=== PATIENT | male | born 1955 | race Hispanic/Latino ===

== ENCOUNTER 2021-01-19 03:04 | Inpatient (IN) | payer MEDICARE, SELFPAY ==
--- NOTE | ~2021-01-19 | XR_ITS ---
EXAMINATION: XR chest 1V portable DATE: 01/19/2021 03:30 INDICATION: Chest pain. TECHNIQUE: A single frontal view of the chest was obtained. COMPARISON: None. FINDINGS: There is mild atelectasis in left lower lung zone. No pleural effusion or pneumothorax. The heart size is normal. IMPRESSION: 1. Mild atelectasis in left lower lung zone. Reviewed, dictated and finalized at location A. MAKER
[2021-01-19 03:03] VITALS: BP 159/90; PULSE 73; RESP 18; O2SAT 100
--- NOTE | 2021-01-19 03:10 | ECG_ITS ---
Measurements Intervals [place] Rate: 67 P: 77 SD: 160 QRS: -44 QRSD: 153 T: 83 QT: 406 QTc: 431 Interpretive Statements SINUS RHYTHM LEFT AXIS DEVIATION LEFT BUNDLE BRANCH BLOCK ST ELEVATION IN ANT/HIGH LAT LEADS- CONSIDER ACUTE INJURY BASELINE ARTIFACT- II, III, AVF ABNORMAL ECG Electronically Signed On 01-19-2021 7:15:47 MACHINE STONECUTTER by Adalberto Muhammad D.O.
--- NOTE | 2021-01-19 03:15 | ED.CHESTPAIN ---
HPI - Chest Pain General Chief Complaint: Chest Pain Stated Complaint: CP Source: RN notes reviewed History of Present Illness HPI narrative: Patient presents emergency department from his car via EMS for chest pain. Patient is from [place] and was driving through the area when approximate 1 hour ago he developed midsternal chest pain described as a pressure. States the pain did not radiate at that time pulled over the side of the car and called EMS. Upon initial EMS evaluation it was noted the patient had ST elevation on his EKG and a code STEMI was called. Patient states the pain is currently a 4 out of 10 and midsternal chest he denies any shortness of breath or any other symptoms denies any previous cardiac history. Patient was given 1 sublingual nitro by EMS with no relief as well as 325 aspirin Related Data Home Medications Medication Instructions Recorded Confirmed metformin 850 mg PO BID 01/19/21 01/19/21 Allergies Allergy/AdvReac Type Severity Reaction Status Date / Time No Known Allergies Allergy Verified 01/19/21 03:40 Review of Systems Review of Systems: Narrative: Gen.: Denies fevers or chills ENT: Denies congestion Respiratory: Denies shortness of breath or cough CV: See HPI GI: Denies abdominal pain nausea, emesis or diarrhea Musculoskeletal: Denies back pain or muscle pain Neuro: Denies numbness, tingling, weakness or focal weakness Skin: Denies rash Except as documented, all other systems reviewed and negative [facility] Past Medical History Medical History (Updated 01/19/21 @ 03:17 by Jose L Lazar DO) Diabetes mellitus Social History Social History (Updated 01/19/21 @ 03:16 by Jose L Lazar DO) Smoking status: Never smoker Exam Narrative: Exam Narrative: APPEARANCE: No acute distress, nontoxic, resting in bed EYES: EOMI HEENT: Normocephalic, atraumatic, OMM RESPIRATORY: No respiratory distress Clear to auscultation bilaterally with no rhonchi wheezing or rales. CARDIOVASCULAR: Regular rate and rhythm without murmurs rubs or gallops. ABDOMINAL: Soft, nontender, nondistended, no rebound or guarding MUSCULOSKELETAl: Moves all extremities. No clubbing, cyanosis or edema. NEURO: Awake and alert. Following commands, speech normal, no focal deficits SKIN:: Warm, dry. No rashes lesions or abrasions PSYCHIATRIC: Normal affect/mood, Course Course Emergency Course: Discussed with Dr. Barreto for cardiology presentation work-up will come to the ED at this time to take patient for emergent cath request patient received heparin bolus Discussed with patient and family results of workup and diagnosis. Discussed need for Cardiac Director Targeted Marketing. All questions were answered Vital Signs Vital signs: Vital Signs Pulse Rate 73 01/19/21 03:03 Respiratory Rate 18 01/19/21 03:03 Blood Pressure 159/90 H 01/19/21 03:03 Pulse Oximetry 100 01/19/21 03:03 Temperature 96.7 F L 01/19/21 03:36 Pulse Rate 67 01/19/21 03:36 Respiratory Rate 16 01/19/21 03:36 Blood Pressure 138/77 01/19/21 03:36 Pulse Oximetry 96 01/19/21 03:36 MDM - Chest Pain Lab Data Result diagrams: 01/19/21 03:22 01/19/21 03:22 Labs: Lab Results 01/19/21 01/19/21 01/19/21 Range/Units 03:22 03:22 03:22 WBC 14.1 H (4.5-10.0) K/mm3 RBC 4.84 (4.6-6.20) M/mm3 Hgb 14.7 (14.0-18.0) g/dL Hct 43.0 (42.0-52.0) % MCV 88.8 (80-100) fl MCH 30.4 (26-34) pg MCHC 34.2 (32-36) g/dl RDW 12.4 (11.5-14.5) % Plt Count 277 (150-375) k/mm3 MPV 9.3 (7.4-10.4) fl Immature Gran % (Auto) 0.4 (0-0.5) % Neut % (Auto) 46.0 (45.5-73.1) % Lymph % (Auto) 33.5 (18.3-44.2) % Collier % (Auto) 5.3 (2.6-8.5) % Eos % (Auto) 14.2 H (0-4.4) % Baso % (Auto) 0.6 (0.2-1.2) % Lymph # (Auto) 4.73 H (0.9-3.2) K/mm3 Collier # (Auto) 0.8 H (0.1-0.6) K/mm3 Eos # (Auto) 2.0 H (0-0.3) K/mm3 Baso # (Auto) 0.1 (0.0-0.1) K
--- NOTE | 2021-01-19 03:25 | PC.NURSE ---
labor and delivery nurse pending , ana maría cp@ a -3 .,skin warm and dry.
[2021-01-19 03:27] LABS: Basophils Absolute Auto 0.1 K/mm3 (0.0-0.1); Basophils Percent Auto 0.6 % (0.2-1.2); Eosinophils Percent Auto 14.2 % (0-4.4); Hemoglobin 14.7 g/dL (14.0-18.0); Immature Granulocyte Absolute 0.05 K/mm3 (0.00-0.031); Immature Granulocyte Percent A 0.4 % (0-0.5); Lymphocytes Absolute Auto 4.73 K/mm3 (0.9-3.2); Lymphocytes Percent Auto 33.5 % (18.3-44.2); Mean Corpuscular HGB Conc 34.2 g/dl (32-36); Mean Corpuscular Hemoglobin 30.4 pg (26-34); Mean Corpuscular Volume 88.8 fl (80-100); Mean Platelet Volume 9.3 fl (7.4-10.4); Monocytes Absolute Auto 0.8 K/mm3 (0.1-0.6); Monocytes Percent Auto 5.3 % (2.6-8.5); Neutrophils Absolute Auto 6.5 K/mm3 (1.3-6.7); Platelet Count Result 277 k/mm3 (150-375); Red Blood Count 4.84 M/mm3 (4.6-6.20); Red Cell Distribution Width 12.4 % (11.5-14.5); White Blood Count 14.1 K/mm3 (4.5-10.0)
[2021-01-19 03:36] VITALS: BP 138/77; PULSE 67; RESP 16; TEMP 35.9; O2SAT 96
[2021-01-19] MEDS: HEPARIN SODIUM 5,000 UNITS/ML VIAL 5000 UNITS (03:43)
[2021-01-19] MEDS: MORPHINE SULFATE (*CRX) 2 MG/ML INJ (03:43)
--- NOTE | 2021-01-19 03:46 | PC.NURSE ---
to microbiology laboratory manager @ [phone]
[2021-01-19 03:51] LABS: Anion Gap 12 mmol/L (8-16); Blood Urea Nitrogen 14 mg/dL (9-20); Calcium 9.3 mg/dL (8.4-10.2); Carbon Dioxide 27 mmol/L (22-30); Chloride 101 mmol/L (98-107); Estimated CRCL calculation 58 ml/min; Estimated Glomerular Filt Rate > 60; Glucose 257 mg/dL (75-110); Potassium 3.4 mmol/L (3.4-5.0); Sodium 140 mmol/L (137-145)
[2021-01-19 04:03] LABS: Troponin I 0.012 ng/mL (0.000-0.034)
--- NOTE | 2021-01-19 05:17 | P.PCNCC_ITS ---
Cardiac Cath Procedure Note Date of procedure:: 01/19/21 Performing physician:: Lorna Barreto MD date of service 01/19/2021 Procedure Procedure performed:: 1-Moderate sedation that started at 4:00 a.m.and ended at 5:00 a.m.using 2mg of Versed and 125mcg fentanyl. The registered nurse was nga mendoza. 2-Selective left and right coronary angiogram. 3-Left heart catheterization with measurement of LVEDP and measurement of gradient across aortic valve. 4- balloon angioplasty of mid LAD. 4-Right common femoral arterial angiogram. 5-Deployment of intra-aortic balloon pump. Sedation/Medication given:: Moderate sedation. Access site:: Right common femoral artery. Estimated blood loss:: 10cc Procedure note:: After informed consent patient was brought in to lab head with the was draped and prepped in usual manner. Moderate sedation was given and the right groin was infiltrated using 1% lidocaine. Five [place] sheath was obtained using micropuncture needle and the modified Seldinger technique.Selective right coronary angiogram was done using JR4 catheter with the tip of the catheter placed to the right coronary artery. then after that we went with the guide catheter 6 [place] CLS 3. coronary luge wire was 0.014 was advanced to distal LAD. Balloon angioplasty of the LAD was done using 3 x 20 balloon with several inflations each under nominal pressure for 20 seconds. After that we took 3 x 15 noncompliant balloon and inflated it in the calcific region with several inflations but that balloon to slipping away from lesion. We took another 3 by 20 noncompliant balloon and inflated under 24 atmospheres for 25 seconds. And n oticed that the lesion in the mid LAD did not healed well. For brief period of time we lost the diagonal branch but it came back. It was noticed that the plaque has shifted also to ostial diagonal branch. CARLOS flow 3. given that the fact that the lesion did not yield well and given the fact that he has other lesions in the left circumflex artery and RCA we decided to quit here and send him for consideration for bypass surgery at [facility]. After that 5 [place] pigtail catheter was advanced across the aortic valve into the left ventricle with measurement of LVEDP and measurement of gradient across aortic valve. LV angiogram was done.Right common femoral arterial angiogram was done. Insertion of intra-aortic balloon pump was done as well. Findings:: 1- left coronary artery is a large artery that divides into large LAD, large circumflex artery. Left main Distally 20%. 2- left anterior descending artery is a large artery that runs and wraps around the apex. CARLOS flow 3. mid LAD 90% calcific. from the mid LAD there is a medium-sized diagonal branch with a healthy ostium however after intervention plaque has shifted to the ostium of the diagonal. 3- leftcircumflex artery is a large artery. at the junction of the mid to distal segment there is about 80% stenosis. 4- right coronary artery Large artery and dominant and proximally 70%. 5- LVEDP was 35 mmhg and no gradient across aortic valve. 6- opening arterial pressure 140/80 was and closing pressure was 130/80. 7- right femoral artery angiogram shows no significant disease in the right common femoral artery. Conclusion:: three vessel disease. lesion in lad did not yield well. shift of the plaque to the diagonal branch Assessment and Plan Additional Plan will transfer patient to [facility] for consideration for cabg
--- NOTE | 2021-01-19 05:17 | WPDMODSED ---
Moderate Sedation Note-Pt Data Patient Data Allergies Allergy/AdvReac Type Severity Reaction Status Date / Time No Known Allergies Allergy Verified 01/19/21 03:40 Home Medications Medication Instructions Recorded Confirmed Type metformin 850 mg PO BID 01/19/21 01/19/21 History Sedation/Anesthesia: No previous sedation/anesthesia problems (including family history). [facility] Past Medical History Medical History Diabetes mellitus Social History Social History Smoking status: Never smoker Mod Sed Physical Exam Physical Exam Pre Procedural Exam: Normal: Appearance, Eyes, Ears, Nose, Neck, Throat, Airway, Lungs, Heart Size, Heart Rate, Heart Rhythm, Neuro Exam, Abdomen, Liver, Kidneys, Spleen, Breasts, Genitalia, Extremities and Skin Hours since solid foods: 8 Hours since liquid intake: 8 Internal Medicine - PN: Obj Da Vital Signs Vital Signs: Vital Signs - 24 hr 01/19/21 03:03 01/19/21 03:36 Temperature 35.9 C L Pulse Rate 73 67 Respiratory Rate 18 16 Blood Pressure 159/90 H 138/77 Pulse Oximetry 100 96 Labs CBC & Chem 7: 01/19/21 03:22 01/19/21 03:22 Labs: Laboratory Results - last 24 hr 01/19/21 01/19/21 03:22 03:22 WBC 14.1 H RBC 4.84 Hgb 14.7 Hct 43.0 MCV 88.8 MCH 30.4 MCHC 34.2 RDW 12.4 Plt Count 277 MPV 9.3 Immature Gran % (Auto) 0.4 Neut % (Auto) 46.0 Lymph % (Auto) 33.5 Collier % (Auto) 5.3 Eos % (Auto) 14.2 H Baso % (Auto) 0.6 Lymph # (Auto) 4.73 H Collier # (Auto) 0.8 H Eos # (Auto) 2.0 H Baso # (Auto) 0.1 Abs Immat Gran (auto) 0.05 H Absolute Neuts (auto) 6.5 Absolute Nucleated RBC 0.0 Nucleated RBC % 0.0 Sodium 140 Potassium 3.4 Chloride 101 Carbon Dioxide 27 Anion Gap 12 BUN 14 Creatinine 1.00 Estim Creat Clear Calc 58 Estimated GFR > 60 Glucose 257 H Calcium 9.3 Troponin I 0.012 ASA Classification/Sedation ASA Classification/Sedation ASA Class: I Emergent: No Risks: Risks, benefits and alternatives explained and patient/family accepted plan for sedation. Patient re-evaluated immediately prior to sedation.
--- NOTE | 2021-01-19 05:18 | PM.IMHP ---
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 He pulled over and called EMS we did EKG that shows left bundle branch block with ST elevation in leads 1 and aVL. He was transported here to [facility]. he was still having pain 08/30. laborer vegetable farm team was called. Was taken to the chemistry lab instructor and flow was noticed that the patient has proximal RCA 70%, mid left circumflex artery 80% and there was 90% disease in the MidLAD with calcification. wounds with balloon angioplasty initially for the LAD and with no significant yield. we lost the flow in the diagonal branch but the flow came back to the diagonal branch. because of the inadequate result of the intervention we decided to transfer the patient to [facility] for CABG. I called CT surgery at [facility] and discussed the case with him and he agreed to accept the patient for consideration for CABG. also I called the ICU doctor at [facility] dr stacy And inform them about the case. I also spoke with the patient's son and I explained to him the situation. They live in [place]. Ejection fraction about 20% with global hypokinesis. LVEDP was 35. balloon pump was inserted the patient was hemodynamically stable. Patient states he never smoked cigarettes and does not have family history of CAD. Review of Systems Review of Systems: All systems reviewed & are unremarkable except as noted in HPI and below Constitutional: Constitutional: Denies chills, Denies fatigue, Denies fever(s), Denies headache(s) and Denies snoring Eyes: Eyes: Denies eye discharge and Denies loss of vision ENT: Denies dizziness, Denies headache(s), Denies nasal discharge and Denies sore throat Cardiovascular: Cardiovascular: Reports as per HPI, Reports chest pain, Denies syncope, Denies rapid heart rate, Denies leg edema, Reports dyspnea, Reports dyspnea on exertion, Denies orthopnea and Denies paroxysmal nocturnal dyspnea Respiratory: Respiratory: Denies chest congestion, Denies cough, Reports dyspnea, Reports dyspnea on exertion, Denies snoring and Denies wheezing Gastrointestinal: Gastrointestinal: Denies abdominal pain, Denies diarrhea, Denies nausea and Denies vomiting Genitourinary: Genitourinary: Denies hematuria, Denies dysuria, Denies flank pain and Denies urinary frequency Musculoskeletal: Musculoskeletal: Denies myalgias, Denies arthralgias and Denies joint swelling Neurologic: Denies Abnormal speech present, Denies dizziness, Denies syncope, Denies headache(s), Denies focal weakness and Denies loss of vision Psychiatric: Psychiatric: Denies anxiety and Denies depression Endocrine: Endocrine: Denies cold intolerance, Denies fatigue and Denies heat intolerance Hematologic/Lymphatic: Hematologic/Lymphatic: Denies easy bleeding and Denies easy bruising Allergic/Immunologic: Allergic/Immunologic: Denies urticaria and Denies wheezing PMFSH Past Medical History Medical History Diabetes mellitus Social History Social History Smoking status: Never smoker Alcohol intake: never Meds Home Medications and Allergies Home Medications Medication Instructions Recorded Confirmed Type metformin 850 mg PO BID 01/19/21 01/19/21 History Allergies Allergy/AdvReac Type Severity Reaction Status Date / Time No Known Allergies Allergy Verified 01/19/21 03:40 Vital Signs Vital Signs - 24 hr 01/19/21 03:03 01/19/21 03:36 Temperature 35.9 C L Pulse Rate 73 67 Respiratory Rate 18 16 Blood Pressure 159/90 H 138/77 Pulse Oximetry 100 96 Exam Con
--- NOTE | 2021-01-19 06:13 | PM.TDS ---
Transfer Discharge Sum: Prov Provider Date of admission: 01/19/21 03:50 Primary care physician: GOLF COURSE STARTER PHYSICIAN Admitting clinician: Lorna Barreto MD DS: Admitting Diagnosis Admitting Diagnosis Admitting Diagnosis: STEMI DS: Discharge Diagnosis Discharge Diagnosis (1) ST elevation (STEMI) myocardial infarction: Code(s): I21.3 - ST elevation (STEMI) myocardial infarction of unspecified site Status: Acute Assessment and Plan: lad had bad stenosis did not yield well to balloon with shift of the plaque to the diagonal branch. also RCA disease and left circumflex artery disease. Balloon pump was inserted. EF 20%. Patient will be transferred to [facility]. 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 He pulled over and called EMS we did EKG that shows left bundle branch block with ST elevation in leads 1 and aVL. He was transported here to [facility]. he was still having pain 08/30. clinical laboratory medical director team was called. Was taken to the geoscience laboratory technician and flow was noticed that the patient has proximal RCA 70%, mid left circumflex artery 80% and there was 90% disease in the MidLAD with calcification. wounds with balloon angioplasty initially for the LAD and with no significant yield. we lost the flow in the diagonal branch but the flow came back to the diagonal branch. because of the inadequate result of the intervention we decided to transfer the patient to [facility] for CABG. I called CT surgery at [facility] and discussed the case with him and he agreed to accept the patient for consideration for CABG. also I called the ICU doctor at [facility] dr stayc And inform them about the case. I also spoke with the patient's son and I explained to him the situation. They live in [place]. Ejection fraction about 20% with global hypokinesis. LVEDP was 35. balloon pump was inserted the patient was hemodynamically stable. Patient states he never smoked cigarettes and does not have family history of CAD. Time Spent with Patient Time attestation: Total time spent providing and/or coordinating transfer services: 95 minutes Exam Const: General: cooperative, comfortable, no acute distress, alert and awake Nutritional Appearance: well nourished Orientation/consciousness: patient oriented x3 HENMT: Head: normal to inspection, normocephalic and atraumatic Ears: hearing grossly normal bilaterally General nose exam: Normal external nose present, Normal nares present and no nasal discharge noted Face and sinus: normal facial exam and no erythema Mouth: No drooling and No restricted motion Throat: uvula midline Eyes: General: appearance normal, both eyes and all related structures Alignment and Position: position normal Conjunctivae: conjunctivae normal Sclera: sclerae normal Direct Ophthalmoscopy: No photophobia Neck: Neck: normal visual inspection and no JVD Thyroid: thyroid normal Carotids: no bruits Lymphatic: lymphedema not noted Chest: Chest palpation & inspection: normal inspection of the chest and no tenderness Resp: Effort & Inspection: normal respiratory effort and no nasal flaring Auscultation: clear to auscultation bilaterally, no crackles, no rales and no wheezes Cardio: Jugular venous distension: no JVD Rate: regular rate Rhythm: regular rhythm Heart sounds: S1 normal heart sound present, S2 normal heart
== END 2021-01-19 06:00 | disposition short-term general hospital (02) | DRG 272 ==
LOC: ANHED 03:46 → ANHICU 03:51
PROVIDERS: Admitting Provider Internal Medicine Cardiovascular Disease; Emergency Provider Emergency Medicine; Visit Provider Internal Medicine Cardiovascular Disease
PROC: 4A023N7 Measurement of Cardiac Sampling and Pressure, Left Heart, Percutaneous Approach (ICD-10-PCS; CPT 93452; principal; 2021-01-19 03:30)
PROC: 5A02210 Assistance with Cardiac Output using Balloon Pump, Continuous (ICD-10-PCS; CPT 92920; 2021-01-19 03:30)
PROC: 5A02210 Assistance with Cardiac Output using Balloon Pump, Continuous (ICD-10-PCS; 2021-01-19 03:30)
DX: I21.3 ST elevation (STEMI) myocardial infarction of unspecified site (principal); E11.9 Type 2 diabetes mellitus without complications; I25.10 Atherosclerotic heart disease of native coronary artery without angina pectoris; Z79.84 Long term (current) use of oral hypoglycemic drugs
CPT/HCPCS: 33967; 36415; 71045; 80048; 84484; 85025; 92920; 93005; 93458; 96374; 96375; 99291; A9270; C1725; C1887; J0583; J1644; J2250; J2270; J3010; J7040